=== PATIENT | female | born 1945 | race Caucasian/White ===

== ENCOUNTER → 2022-08-25 | Outpatient (CLI) | payer MEDICARE | LOC: PLD 11:14 → LAB SHORT 11:14 | DX: D48.5 Neoplasm of uncertain behavior of skin (principal) | CPT/HCPCS: 88305 ==

== ENCOUNTER → 2022-09-02 | Outpatient (CLI) | payer MEDICARE | LOC: LAB 10:04 → PLD 10:04 → LAB SHORT 10:04 | DX: D48.5 Neoplasm of uncertain behavior of skin (principal) | CPT/HCPCS: 88305 ==

== ENCOUNTER → 2023-03-31 | Outpatient (CLI) | payer MEDICARE | LOC: PLD 13:24 → LAB 13:24 → LAB SHORT 13:24 | DX: D48.5 Neoplasm of uncertain behavior of skin (principal) | CPT/HCPCS: 88305 ==

== ENCOUNTER → 2023-11-27 | Outpatient (CLI) | payer MEDICARE | LOC: LAB SHORT 11:20 → LAB 11:20 | DX: I87.2 Venous insufficiency (chronic) (peripheral) (principal) | CPT/HCPCS: 87070; 87205 ==

== ENCOUNTER 2024-02-10 01:22 | Day surgery (SDC) | payer MEDICARE ==
[2024-02-10] MEDS ORDERED: Lidocaine HCl 4% Cream 5 GM ONE (08:33)
== END 2024-02-10 23:10 | disposition home or self-care (01) ==
LOC: WOUND 01:22
DX: I83.018 Varicose veins of right lower extremity with ulcer other part of lower leg (principal); L97.822 Non-pressure chronic ulcer of other part of left lower leg with fat layer exposed; I87.2 Venous insufficiency (chronic) (peripheral); I73.9 Peripheral vascular disease, unspecified; I83.028 Varicose veins of left lower extremity with ulcer other part of lower leg; Z87.891 Personal history of nicotine dependence; I11.0 Hypertensive heart disease with heart failure; I50.9 Heart failure, unspecified; I48.91 Unspecified atrial fibrillation; Z88.5 Allergy status to narcotic agent
CPT/HCPCS: A9270; G0463

== ENCOUNTER 2024-02-15 03:12 | Day surgery (SDC) | payer MEDICARE ==
[2024-02-15] MEDS ORDERED: Lidocaine HCl 4% Cream 5 GM ONE (10:02)
== END 2024-02-15 23:00 | disposition home or self-care (01) ==
LOC: WOUND 03:12
DX: L97.822 Non-pressure chronic ulcer of other part of left lower leg with fat layer exposed (principal); I87.312 Chronic venous hypertension (idiopathic) with ulcer of left lower extremity; I73.9 Peripheral vascular disease, unspecified; I11.0 Hypertensive heart disease with heart failure; I50.9 Heart failure, unspecified; M19.90 Unspecified osteoarthritis, unspecified site; Z79.01 Long term (current) use of anticoagulants
CPT/HCPCS: A6196; A9270

== ENCOUNTER 2024-02-22 02:04 | Day surgery (SDC) | payer MEDICARE ==
[2024-02-22] MEDS ORDERED: Lidocaine HCl 4% Cream 5 GM ONE (09:49)
== END 2024-02-22 23:11 | disposition home or self-care (01) ==
LOC: WOUND 02:04
DX: I87.312 Chronic venous hypertension (idiopathic) with ulcer of left lower extremity (principal); L97.822 Non-pressure chronic ulcer of other part of left lower leg with fat layer exposed; I83.019 Varicose veins of right lower extremity with ulcer of unspecified site; I87.2 Venous insufficiency (chronic) (peripheral); I73.9 Peripheral vascular disease, unspecified
CPT/HCPCS: A9270

== ENCOUNTER 2024-03-01 04:42 | Day surgery (SDC) | payer MEDICARE ==
[2024-03-01] MEDS ORDERED: Lidocaine HCl 4% Cream 5 GM ONE (08:25)
== END 2024-03-01 23:00 | disposition home or self-care (01) ==
LOC: WOUND 04:42
DX: I87.312 Chronic venous hypertension (idiopathic) with ulcer of left lower extremity (principal); I87.2 Venous insufficiency (chronic) (peripheral); I73.9 Peripheral vascular disease, unspecified; L97.822 Non-pressure chronic ulcer of other part of left lower leg with fat layer exposed
CPT/HCPCS: A6213; A9270

== ENCOUNTER 2024-03-08 02:13 | Day surgery (SDC) | payer MEDICARE ==
[2024-03-08] MEDS ORDERED: Lidocaine HCl 4% Cream 5 GM ONE (09:41)
== END 2024-03-08 23:41 | disposition home or self-care (01) ==
LOC: WOUND 02:13
DX: I83.019 Varicose veins of right lower extremity with ulcer of unspecified site (principal); L97.822 Non-pressure chronic ulcer of other part of left lower leg with fat layer exposed; I87.2 Venous insufficiency (chronic) (peripheral); I73.9 Peripheral vascular disease, unspecified
CPT/HCPCS: A9270

== ENCOUNTER 2024-03-10 00:31 | Day surgery (SDC) | payer MEDICARE | END 2024-03-10 23:00 | disposition home or self-care (01) | LOC: WOUND 00:31 | DX: I87.312 Chronic venous hypertension (idiopathic) with ulcer of left lower extremity (principal); L97.822 Non-pressure chronic ulcer of other part of left lower leg with fat layer exposed; I87.2 Venous insufficiency (chronic) (peripheral); I73.9 Peripheral vascular disease, unspecified ==

== ENCOUNTER 2024-03-15 01:50 | Day surgery (SDC) | payer MEDICARE | END 2024-03-15 23:17 | disposition home or self-care (01) | LOC: WOUND 01:50 | DX: I87.312 Chronic venous hypertension (idiopathic) with ulcer of left lower extremity (principal); L97.822 Non-pressure chronic ulcer of other part of left lower leg with fat layer exposed; I73.9 Peripheral vascular disease, unspecified | CPT/HCPCS: G0463 ==

== ENCOUNTER → 2024-03-15 | Outpatient (CLI) | payer MEDICARE | END | disposition home or self-care (01) | LOC: LAB SHORT 16:18 → LAB 16:18 | DX: L08.0 Pyoderma (principal) | CPT/HCPCS: 87070; 87205 ==

== ENCOUNTER 2024-03-22 03:47 | Day surgery (SDC) | payer MEDICARE ==
[2024-03-22] MEDS ORDERED: Lidocaine HCl 4% Cream 5 GM ONE (11:38)
== END 2024-03-22 23:55 | disposition home or self-care (01) ==
LOC: WOUND 03:47
DX: I83.012 Varicose veins of right lower extremity with ulcer of calf (principal); L97.822 Non-pressure chronic ulcer of other part of left lower leg with fat layer exposed; I87.2 Venous insufficiency (chronic) (peripheral); I73.9 Peripheral vascular disease, unspecified
CPT/HCPCS: A9270

== ENCOUNTER 2024-03-31 03:49 | Day surgery (SDC) | payer MEDICARE ==
[2024-03-31] MEDS ORDERED: Lidocaine HCl 4% Cream 5 GM ONE (07:52)
== END 2024-04-01 03:06 | disposition home or self-care (01) ==
LOC: WOUND 03:49
DX: I83.018 Varicose veins of right lower extremity with ulcer other part of lower leg (principal); L97.822 Non-pressure chronic ulcer of other part of left lower leg with fat layer exposed; I87.2 Venous insufficiency (chronic) (peripheral)
CPT/HCPCS: A9270

== ENCOUNTER 2024-04-06 04:01 | Day surgery (SDC) | payer MEDICARE ==
[2024-04-06] MEDS ORDERED: Lidocaine HCl 4% Cream 5 GM ONE (09:37)
== END 2024-04-06 23:30 | disposition home or self-care (01) ==
LOC: WOUND 04:01
DX: I87.312 Chronic venous hypertension (idiopathic) with ulcer of left lower extremity (principal); L97.822 Non-pressure chronic ulcer of other part of left lower leg with fat layer exposed; I73.9 Peripheral vascular disease, unspecified
CPT/HCPCS: A9270

== ENCOUNTER 2024-04-18 09:07 | Day surgery (SDC) | payer MEDICARE ==
[~2024-04-18] VITALS: Ht 162.6 cm; Wt 75.5 kg
[~2024-04-18 09:07] MED LIST: Lactated Ringer's 1,000 ML IV ONE; propofoL 50 ML IV ONE
[2024-04-18] MEDS ORDERED: ACET325 (10:13)
[2024-04-18] MEDS ORDERED: AMLO5 (10:14)
[2024-04-18] MEDS ORDERED: DAPAGLIFLOZIN10 MG (10:14)
[2024-04-18] MEDS ORDERED: ELIQUIS5 M2 (10:14)
[2024-04-18] MEDS ORDERED: HYDCHL25 (10:15)
[2024-04-18] MEDS ORDERED: LOSA50 (10:15)
[2024-04-18] MEDS ORDERED: MIRALAX17 GM (10:16)
[2024-04-18] MEDS ORDERED: Pentoxifylline400 MG (10:16)
[2024-04-18] MEDS ORDERED: MELATONIN5 M1 (10:16)
[2024-04-18] MEDS ORDERED: SERT100 (10:17)
[2024-04-18] MEDS ORDERED: Lactated Ringer's 1,000 ML IV ONE (10:27)
[2024-04-18 12:13] VITALS: BP 141/99
== END 2024-04-18 12:12 | disposition home or self-care (01) ==
LOC: ORSCSDS 09:07
PROVIDERS: Internal Medicine Gastroenterology
PROC: 0DBK8ZX Excision of Ascending Colon, Via Natural or Artificial Opening Endoscopic, Diagnostic (ICD-10-PCS; principal; 2024-04-18 10:30)
PROC: 0DBM8ZX Excision of Descending Colon, Via Natural or Artificial Opening Endoscopic, Diagnostic (ICD-10-PCS; principal; 2024-04-18 10:30)
PROC: 0DBL8ZX Excision of Transverse Colon, Via Natural or Artificial Opening Endoscopic, Diagnostic (ICD-10-PCS; principal; 2024-04-18 10:30)
DX: Z12.11 Encounter for screening for malignant neoplasm of colon (principal); D12.2 Benign neoplasm of ascending colon; D12.3 Benign neoplasm of transverse colon; D12.4 Benign neoplasm of descending colon; R19.5 Other fecal abnormalities; Z86.0100 Personal history of colon polyps, unspecified; I10 Essential (primary) hypertension; I48.91 Unspecified atrial fibrillation; Z79.01 Long term (current) use of anticoagulants; Z79.899 Other long term (current) drug therapy; Z87.891 Personal history of nicotine dependence; K57.30 Diverticulosis of large intestine without perforation or abscess without bleeding; K64.4 Residual hemorrhoidal skin tags
CPT/HCPCS: 88305; J2704; J7120

== ENCOUNTER 2024-04-27 10:11 | Day surgery (SDC) | payer MEDICARE ==
[~2024-04-27 10:11] MED LIST changes: +ACET325; +AMLO5; +DAPAGLIFLOZIN10 MG; +ELIQUIS5 M2; +HYDCHL25; +LOSA50; -Lactated Ringer's 1,000 ML IV ONE; +Lidocaine HCl 4% Cream 5 GM ONE; +MELATONIN5 M1; +MIRALAX17 GM; +Pentoxifylline400 MG; +SERT100; -propofoL 50 ML IV ONE
== END 2024-04-27 23:00 | disposition home or self-care (01) ==
LOC: WOUND 10:11
DX: I87.312 Chronic venous hypertension (idiopathic) with ulcer of left lower extremity (principal); L97.822 Non-pressure chronic ulcer of other part of left lower leg with fat layer exposed; I87.2 Venous insufficiency (chronic) (peripheral); I73.9 Peripheral vascular disease, unspecified
CPT/HCPCS: A9270

== ENCOUNTER 2024-05-04 01:36 | Day surgery (SDC) | payer MEDICARE ==
[~2024-05-04 01:36] MED LIST changes: -Lidocaine HCl 4% Cream 5 GM ONE
[2024-05-04] MEDS ORDERED: Lidocaine HCl 4% Cream 5 GM ONE (09:07)
== END 2024-05-04 23:00 | disposition home or self-care (01) ==
LOC: WOUND 01:36
DX: I87.312 Chronic venous hypertension (idiopathic) with ulcer of left lower extremity (principal); L97.822 Non-pressure chronic ulcer of other part of left lower leg with fat layer exposed; I87.2 Venous insufficiency (chronic) (peripheral); I73.9 Peripheral vascular disease, unspecified
CPT/HCPCS: A9270

== ENCOUNTER 2024-05-11 05:31 | Day surgery (SDC) | payer MEDICARE ==
[2024-05-11] MEDS ORDERED: Lidocaine HCl 4% Cream 5 GM ONE (10:03)
== END 2024-05-11 23:00 | disposition home or self-care (01) ==
LOC: WOUND 05:31
DX: I87.312 Chronic venous hypertension (idiopathic) with ulcer of left lower extremity (principal); L97.822 Non-pressure chronic ulcer of other part of left lower leg with fat layer exposed; I87.2 Venous insufficiency (chronic) (peripheral); I73.9 Peripheral vascular disease, unspecified
CPT/HCPCS: A9270

== ENCOUNTER 2024-05-25 04:48 | Day surgery (SDC) | payer MEDICARE ==
[2024-05-25] MEDS ORDERED: Lidocaine HCl 4% Cream 5 GM ONE (09:53)
== END 2024-05-25 23:00 | disposition home or self-care (01) ==
LOC: WOUND 04:48
DX: I87.312 Chronic venous hypertension (idiopathic) with ulcer of left lower extremity (principal); L97.822 Non-pressure chronic ulcer of other part of left lower leg with fat layer exposed; I87.2 Venous insufficiency (chronic) (peripheral); I73.9 Peripheral vascular disease, unspecified
CPT/HCPCS: A9270

== ENCOUNTER 2024-06-01 04:24 | Day surgery (SDC) | payer MEDICARE ==
[2024-06-01] MEDS ORDERED: Lidocaine HCl 4% Cream 5 GM ONE (10:16)
== END 2024-06-01 23:00 | disposition home or self-care (01) ==
LOC: WOUND 04:24
DX: I87.312 Chronic venous hypertension (idiopathic) with ulcer of left lower extremity (principal); L97.822 Non-pressure chronic ulcer of other part of left lower leg with fat layer exposed; I87.2 Venous insufficiency (chronic) (peripheral); I73.9 Peripheral vascular disease, unspecified
CPT/HCPCS: A9270; G0463

== ENCOUNTER 2024-06-08 01:00 | Day surgery (SDC) | payer MEDICARE ==
[2024-06-08] MEDS ORDERED: Lidocaine HCl 4% Cream 5 GM ONE (10:19)
== END 2024-06-08 23:00 | disposition home or self-care (01) ==
LOC: WOUND 01:00
DX: I87.312 Chronic venous hypertension (idiopathic) with ulcer of left lower extremity (principal); L97.822 Non-pressure chronic ulcer of other part of left lower leg with fat layer exposed; I87.2 Venous insufficiency (chronic) (peripheral); I73.9 Peripheral vascular disease, unspecified
CPT/HCPCS: A9270; G0463

== ENCOUNTER → 2024-06-15 | Day surgery (SDC) | payer MEDICARE ==
[~2024-06-15] MED LIST changes: +Lidocaine HCl 4% Cream 5 GM ONE
== END ==
LOC: WOUND 04:58
DX: I87.312 Chronic venous hypertension (idiopathic) with ulcer of left lower extremity (principal); L97.822 Non-pressure chronic ulcer of other part of left lower leg with fat layer exposed; I87.2 Venous insufficiency (chronic) (peripheral); I73.9 Peripheral vascular disease, unspecified
CPT/HCPCS: A9270

== ENCOUNTER 2024-06-22 01:33 | Day surgery (SDC) | payer MEDICARE ==
[~2024-06-22 01:33] MED LIST changes: -Lidocaine HCl 4% Cream 5 GM ONE
[2024-06-22] MEDS ORDERED: Lidocaine HCl 4% Cream 5 GM ONE (10:14)
== END 2024-06-22 23:00 | disposition home or self-care (01) ==
LOC: WOUND 01:33
DX: I87.312 Chronic venous hypertension (idiopathic) with ulcer of left lower extremity (principal); L97.822 Non-pressure chronic ulcer of other part of left lower leg with fat layer exposed; I87.2 Venous insufficiency (chronic) (peripheral); I73.9 Peripheral vascular disease, unspecified
CPT/HCPCS: A9270; G0463

== ENCOUNTER 2024-07-21 02:10 | Day surgery (SDC) | payer MEDICARE | END 2024-07-21 23:00 | disposition home or self-care (01) | LOC: WOUND 02:10 | DX: I87.312 Chronic venous hypertension (idiopathic) with ulcer of left lower extremity (principal); L97.822 Non-pressure chronic ulcer of other part of left lower leg with fat layer exposed; I87.2 Venous insufficiency (chronic) (peripheral); I73.9 Peripheral vascular disease, unspecified | CPT/HCPCS: G0463 ==

== ENCOUNTER 2024-08-10 00:39 | Day surgery (SDC) | payer MEDICARE ==
[2024-08-10] MEDS ORDERED: Lidocaine HCl 4% Cream 5 GM ONE (09:28)
== END 2024-08-10 23:00 | disposition home or self-care (01) ==
LOC: WOUND 00:39
DX: I83.018 Varicose veins of right lower extremity with ulcer other part of lower leg (principal); L97.822 Non-pressure chronic ulcer of other part of left lower leg with fat layer exposed; I87.2 Venous insufficiency (chronic) (peripheral); I73.9 Peripheral vascular disease, unspecified
CPT/HCPCS: A9270; G0463

== ENCOUNTER 2024-11-21 02:10 | Day surgery (SDC) | payer MEDICARE ==
[2024-11-21] MEDS ORDERED: Lidocaine HCl 4% Cream 5 GM ONE (07:56)
== END 2024-11-21 23:00 | disposition home or self-care (01) ==
LOC: WOUND 02:10
DX: I87.312 Chronic venous hypertension (idiopathic) with ulcer of left lower extremity (principal); L97.822 Non-pressure chronic ulcer of other part of left lower leg with fat layer exposed; I87.2 Venous insufficiency (chronic) (peripheral); Z87.891 Personal history of nicotine dependence; Z88.5 Allergy status to narcotic agent; Z88.8 Allergy status to other drugs, medicaments and biological substances
CPT/HCPCS: A9270; G0463

== ENCOUNTER 2024-11-28 04:29 | Day surgery (SDC) | payer MEDICARE ==
[2024-11-28] MEDS ORDERED: Lidocaine HCl 4% Cream 5 GM ONE (11:37)
== END 2024-11-28 22:00 | disposition home or self-care (01) ==
LOC: WOUND 04:29
DX: I87.312 Chronic venous hypertension (idiopathic) with ulcer of left lower extremity (principal); L97.822 Non-pressure chronic ulcer of other part of left lower leg with fat layer exposed; I87.2 Venous insufficiency (chronic) (peripheral)
CPT/HCPCS: A9270

== ENCOUNTER 2024-12-05 00:44 | Day surgery (SDC) | payer MEDICARE ==
[2024-12-05] MEDS ORDERED: Lidocaine HCl 4% Cream 5 GM ONE (10:16)
== END 2024-12-05 23:00 | disposition home or self-care (01) ==
LOC: WOUND 00:44
DX: I87.312 Chronic venous hypertension (idiopathic) with ulcer of left lower extremity (principal); L97.822 Non-pressure chronic ulcer of other part of left lower leg with fat layer exposed; I87.2 Venous insufficiency (chronic) (peripheral)
CPT/HCPCS: A9270

== ENCOUNTER 2024-12-12 00:45 | Day surgery (SDC) | payer MEDICARE ==
[2024-12-12] MEDS ORDERED: Lidocaine HCl 4% Cream 5 GM ONE (10:52)
== END 2024-12-12 23:19 | disposition home or self-care (01) ==
LOC: WOUND 00:45
DX: I87.312 Chronic venous hypertension (idiopathic) with ulcer of left lower extremity (principal); L97.822 Non-pressure chronic ulcer of other part of left lower leg with fat layer exposed; I87.2 Venous insufficiency (chronic) (peripheral)
CPT/HCPCS: A9270

== ENCOUNTER 2024-12-19 00:59 | Day surgery (SDC) | payer MEDICARE ==
[2024-12-19] MEDS ORDERED: Lidocaine HCl 4% Cream 5 GM ONE (15:14)
== END 2024-12-19 23:00 | disposition home or self-care (01) ==
LOC: WOUND 00:59
DX: I87.312 Chronic venous hypertension (idiopathic) with ulcer of left lower extremity (principal); L97.822 Non-pressure chronic ulcer of other part of left lower leg with fat layer exposed; I87.2 Venous insufficiency (chronic) (peripheral)
CPT/HCPCS: A9270

== ENCOUNTER 2025-01-02 04:29 | Day surgery (SDC) | payer MEDICARE ==
[2025-01-02] MEDS ORDERED: Lidocaine HCl 4% Cream 5 GM ONE (09:01)
== END 2025-01-02 23:00 | disposition home or self-care (01) ==
LOC: WOUND 04:29
DX: I87.312 Chronic venous hypertension (idiopathic) with ulcer of left lower extremity (principal); L97.822 Non-pressure chronic ulcer of other part of left lower leg with fat layer exposed; I87.2 Venous insufficiency (chronic) (peripheral)
CPT/HCPCS: A9270

== ENCOUNTER 2025-01-09 01:03 | Day surgery (SDC) | payer MEDICARE ==
[2025-01-09] MEDS ORDERED: Lidocaine HCl 4% Cream 5 GM ONE (11:12)
== END 2025-01-09 23:00 | disposition home or self-care (01) ==
LOC: WOUND 01:03
DX: I87.312 Chronic venous hypertension (idiopathic) with ulcer of left lower extremity (principal); L97.822 Non-pressure chronic ulcer of other part of left lower leg with fat layer exposed; I87.2 Venous insufficiency (chronic) (peripheral); Z88.5 Allergy status to narcotic agent; Z88.8 Allergy status to other drugs, medicaments and biological substances
CPT/HCPCS: A9270

== ENCOUNTER 2025-01-16 01:08 | Day surgery (SDC) | payer MEDICARE ==
[2025-01-16] MEDS ORDERED: Lidocaine HCl 4% Cream 5 GM ONE (15:27)
== END 2025-01-16 23:00 | disposition home or self-care (01) ==
LOC: WOUND 01:08
DX: I87.312 Chronic venous hypertension (idiopathic) with ulcer of left lower extremity (principal); L97.822 Non-pressure chronic ulcer of other part of left lower leg with fat layer exposed; I87.2 Venous insufficiency (chronic) (peripheral)
CPT/HCPCS: A9270

== ENCOUNTER 2025-01-30 04:41 | Day surgery (SDC) | payer MEDICARE ==
[2025-01-30] MEDS ORDERED: Lidocaine HCl 4% Cream 5 GM ONE (11:23)
== END 2025-01-30 23:01 | disposition home or self-care (01) ==
LOC: WOUND 04:41
DX: I87.312 Chronic venous hypertension (idiopathic) with ulcer of left lower extremity (principal); L97.822 Non-pressure chronic ulcer of other part of left lower leg with fat layer exposed; L97.812 Non-pressure chronic ulcer of other part of right lower leg with fat layer exposed; I87.2 Venous insufficiency (chronic) (peripheral)
CPT/HCPCS: A9270

== ENCOUNTER 2025-02-06 02:26 | Day surgery (SDC) | payer MEDICARE ==
[2025-02-06] MEDS ORDERED: Lidocaine HCl 4% Cream 5 GM ONE ×2 (12:44→13:04)
== END 2025-02-06 23:00 | disposition home or self-care (01) ==
LOC: WOUND 02:26
DX: I87.313 Chronic venous hypertension (idiopathic) with ulcer of bilateral lower extremity (principal); L97.812 Non-pressure chronic ulcer of other part of right lower leg with fat layer exposed; L97.822 Non-pressure chronic ulcer of other part of left lower leg with fat layer exposed; I87.2 Venous insufficiency (chronic) (peripheral)
CPT/HCPCS: A9270

== ENCOUNTER 2025-02-13 02:30 | Day surgery (SDC) | payer MEDICARE ==
[2025-02-13] MEDS ORDERED: Lidocaine HCl 4% Cream 5 GM ONE (09:08)
== END 2025-02-13 23:00 | disposition home or self-care (01) ==
LOC: WOUND 02:30
DX: I87.313 Chronic venous hypertension (idiopathic) with ulcer of bilateral lower extremity (principal); L97.822 Non-pressure chronic ulcer of other part of left lower leg with fat layer exposed; L97.811 Non-pressure chronic ulcer of other part of right lower leg limited to breakdown of skin; I87.2 Venous insufficiency (chronic) (peripheral)
CPT/HCPCS: A9270

== ENCOUNTER 2025-02-20 02:25 | Day surgery (SDC) | payer MEDICARE ==
[2025-02-20] MEDS ORDERED: Lidocaine HCl 4% Cream 5 GM ONE (12:49)
== END 2025-02-20 22:00 | disposition home or self-care (01) ==
LOC: WOUND 02:25
DX: I87.313 Chronic venous hypertension (idiopathic) with ulcer of bilateral lower extremity (principal); L97.822 Non-pressure chronic ulcer of other part of left lower leg with fat layer exposed; L97.812 Non-pressure chronic ulcer of other part of right lower leg with fat layer exposed; I87.2 Venous insufficiency (chronic) (peripheral); I73.9 Peripheral vascular disease, unspecified; I11.0 Hypertensive heart disease with heart failure; I50.9 Heart failure, unspecified
CPT/HCPCS: A9270

== ENCOUNTER 2025-02-27 00:38 | Day surgery (SDC) | payer MEDICARE ==
[2025-02-27] MEDS ORDERED: Lidocaine HCl 4% Cream 5 GM ONE (09:55)
== END 2025-02-27 23:00 | disposition home or self-care (01) ==
LOC: WOUND 00:38
DX: I87.313 Chronic venous hypertension (idiopathic) with ulcer of bilateral lower extremity (principal); L97.822 Non-pressure chronic ulcer of other part of left lower leg with fat layer exposed; L97.812 Non-pressure chronic ulcer of other part of right lower leg with fat layer exposed; I87.2 Venous insufficiency (chronic) (peripheral)
CPT/HCPCS: A9270

== ENCOUNTER 2025-03-06 01:51 | Day surgery (SDC) | payer MEDICARE ==
[2025-03-06] MEDS ORDERED: Lidocaine HCl 4% Cream 5 GM ONE (08:58)
== END 2025-03-06 23:00 | disposition home or self-care (01) ==
LOC: WOUND 01:51
DX: I87.312 Chronic venous hypertension (idiopathic) with ulcer of left lower extremity (principal); L97.822 Non-pressure chronic ulcer of other part of left lower leg with fat layer exposed; I87.2 Venous insufficiency (chronic) (peripheral)
CPT/HCPCS: A9270

== ENCOUNTER 2025-03-13 01:02 | Day surgery (SDC) | payer MEDICARE ==
[2025-03-13] MEDS ORDERED: Lidocaine HCl 4% Cream 5 GM ONE (10:23)
== END 2025-03-13 23:00 | disposition home or self-care (01) ==
LOC: WOUND 01:02
DX: L97.822 Non-pressure chronic ulcer of other part of left lower leg with fat layer exposed (principal); I87.2 Venous insufficiency (chronic) (peripheral); I11.0 Hypertensive heart disease with heart failure; I50.9 Heart failure, unspecified; I73.9 Peripheral vascular disease, unspecified
CPT/HCPCS: A9270

== ENCOUNTER 2025-03-20 01:30 | Day surgery (SDC) | payer MEDICARE | END 2025-03-20 22:52 | disposition home or self-care (01) | LOC: WOUND 01:30 | DX: L97.825 Non-pressure chronic ulcer of other part of left lower leg with muscle involvement without evidence of necrosis (principal); I87.2 Venous insufficiency (chronic) (peripheral); I50.9 Heart failure, unspecified; I11.0 Hypertensive heart disease with heart failure ==

== ENCOUNTER 2025-03-27 00:50 | Day surgery (SDC) | payer MEDICARE | END 2025-03-27 23:00 | disposition home or self-care (01) | LOC: WOUND 00:50 | DX: L97.825 Non-pressure chronic ulcer of other part of left lower leg with muscle involvement without evidence of necrosis (principal); I87.2 Venous insufficiency (chronic) (peripheral); I11.0 Hypertensive heart disease with heart failure; I50.9 Heart failure, unspecified ==

== ENCOUNTER 2025-04-02 08:33 | Day surgery (SDC) | payer MEDICARE ==
[2025-04-02] MEDS ORDERED: Lidocaine HCl 4% Cream 5 GM ONE (12:45)
== END 2025-04-02 23:15 | disposition home or self-care (01) ==
LOC: WOUND 08:33
DX: I87.312 Chronic venous hypertension (idiopathic) with ulcer of left lower extremity (principal); L97.825 Non-pressure chronic ulcer of other part of left lower leg with muscle involvement without evidence of necrosis; I87.2 Venous insufficiency (chronic) (peripheral)
CPT/HCPCS: A9270

== ENCOUNTER 2025-04-10 01:05 | Day surgery (SDC) | payer MEDICARE, OTHER | END 2025-04-10 23:12 | disposition home or self-care (01) | LOC: WOUND 01:05 | DX: I87.312 Chronic venous hypertension (idiopathic) with ulcer of left lower extremity (principal); L97.825 Non-pressure chronic ulcer of other part of left lower leg with muscle involvement without evidence of necrosis; I87.2 Venous insufficiency (chronic) (peripheral) ==

== ENCOUNTER 2025-04-16 00:34 | Day surgery (SDC) | payer MEDICARE, OTHER ==
[2025-04-16] MEDS ORDERED: Lidocaine HCl 4% Cream 5 GM ONE (10:05)
== END 2025-04-16 23:00 | disposition home or self-care (01) ==
LOC: WOUND 00:34
DX: I87.312 Chronic venous hypertension (idiopathic) with ulcer of left lower extremity (principal); L97.822 Non-pressure chronic ulcer of other part of left lower leg with fat layer exposed
CPT/HCPCS: A9270

== ENCOUNTER 2025-04-24 02:27 | Day surgery (SDC) | payer MEDICARE ==
[2025-04-24] MEDS ORDERED: Lidocaine HCl 4% Cream 5 GM ONE (09:09)
== END 2025-04-24 23:37 | disposition home or self-care (01) ==
LOC: WOUND 02:27
DX: I87.312 Chronic venous hypertension (idiopathic) with ulcer of left lower extremity (principal); L97.822 Non-pressure chronic ulcer of other part of left lower leg with fat layer exposed; I50.9 Heart failure, unspecified; I11.0 Hypertensive heart disease with heart failure
CPT/HCPCS: A9270

== ENCOUNTER 2025-05-01 02:25 | Day surgery (SDC) | payer MEDICARE | END 2025-05-01 23:39 | disposition home or self-care (01) | LOC: WOUND 02:25 | DX: I87.312 Chronic venous hypertension (idiopathic) with ulcer of left lower extremity (principal); L97.822 Non-pressure chronic ulcer of other part of left lower leg with fat layer exposed | CPT/HCPCS: A9270 ==

== ENCOUNTER 2025-05-08 00:32 | Day surgery (SDC) | payer MEDICARE | END 2025-05-08 23:45 | disposition home or self-care (01) | LOC: WOUND 00:32 | DX: I87.312 Chronic venous hypertension (idiopathic) with ulcer of left lower extremity (principal); L97.822 Non-pressure chronic ulcer of other part of left lower leg with fat layer exposed; I11.0 Hypertensive heart disease with heart failure; I50.9 Heart failure, unspecified | CPT/HCPCS: G0463 ==

== ENCOUNTER 2025-05-22 13:00 | Day surgery (SDC) | payer MEDICARE ==
[2025-05-22] MEDS ORDERED: Lidocaine HCl 4% Cream 5 GM ONE (13:03)
== END 2025-05-22 23:00 | disposition home or self-care (01) ==
LOC: WOUND 13:00
DX: I87.312 Chronic venous hypertension (idiopathic) with ulcer of left lower extremity (principal); L97.822 Non-pressure chronic ulcer of other part of left lower leg with fat layer exposed; I50.9 Heart failure, unspecified; I11.0 Hypertensive heart disease with heart failure
CPT/HCPCS: A9270